=== PATIENT | male | born 1945 | race Caucasian/White ===

== ENCOUNTER → 2020-06-16 11:42 | Outpatient (BNVA) | payer MEDICARE, OTHER, SELFPAY | PROVIDERS: PCP Internal Medicine; Visit Provider Nurse Practitioner Gerontology | DX: Z13.89 Encounter for screening for other disorder (principal) | CPT/HCPCS: Q3014 ==

== ENCOUNTER → 2020-12-23 12:40 | Outpatient (BNVA) | payer MEDICARE, OTHER, SELFPAY | PROVIDERS: PCP Internal Medicine; Visit Provider Nurse Practitioner Gerontology | CPT/HCPCS: Q3014 ==

== ENCOUNTER → 2021-04-08 13:34 | Outpatient (BNVA) | payer MEDICARE, OTHER, SELFPAY | PROVIDERS: PCP Internal Medicine; Visit Provider Nurse Practitioner Gerontology | DX: E11.65 Type 2 diabetes mellitus with hyperglycemia (principal); E11.21 Type 2 diabetes mellitus with diabetic nephropathy; E11.42 Type 2 diabetes mellitus with diabetic polyneuropathy; I10 Essential (primary) hypertension; I25.10 Atherosclerotic heart disease of native coronary artery without angina pectoris; E78.5 Hyperlipidemia, unspecified; J44.9 Chronic obstructive pulmonary disease, unspecified; G47.33 Obstructive sleep apnea (adult) (pediatric); Z87.891 Personal history of nicotine dependence; Z79.4 Long term (current) use of insulin; Z79.84 Long term (current) use of oral hypoglycemic drugs; Z79.899 Other long term (current) drug therapy; Z71.3 Dietary counseling and surveillance | CPT/HCPCS: 82947; 83036; 99212 ==

== ENCOUNTER 2022-06-30 12:14 | Emergency (ER) | payer MEDICARE, OTHER, SELFPAY ==
--- NOTE | ~2022-06-30 | XR_ITS ---
EXAMINATION: XR SHOULDER, LEFT CLINICAL INFORMATION: Fall yesterday. COMPARISON: None TECHNIQUE: Three views of the left shoulder. FINDINGS: No acute fracture or malalignment. There is mild osteoarthritis of the glenohumeral and acromioclavicular joints with small marginal osteophytes and nonuniform joint space narrowing. A small 2 mm calcification at the greater tuberosity is most consistent with calcific tendinitis. Subtle calcific densities overlying the lesser tuberosity and proximal shaft may also correspond to foci calcific tendinitis or bone islands in the proximal humerus. No aggressive osseous lesions are identified. Surgical clips are present in the left supraclavicular soft tissues. No acute rib fractures are identified on these images. XR/XR shoulder LT min 2V IMPRESSION: 1. No acute fracture or malalignment. 2. Mild glenohumeral and acromioclavicular osteoarthritis. 3. Small 2 mm calcification at the greater tuberosity, most consistent with calcific tendinitis.
--- NOTE | ~2022-06-30 | CT_ITS ---
EXAMINATION: CT HEAD WITHOUT CONTRAST CLINICAL INFORMATION: Status post fall COMPARISON: None TECHNIQUE: Contiguous axial imaging was performed from the skull base to vertex without intravenous administration of contrast. This CT examination was performed using dose optimization techniques as appropriate, variously including the following: *Automated exposure control *Adjustment of mA and/or kV according to patient size (this includes techniques or standardized protocols for targeted exams where dose is matched to indication/reason for exam; i.e. extremities or head) *Use of iterative reconstruction technique DLP: 1452 mGy-cm FINDINGS: There is no evidence of acute intracranial hemorrhage or territorial infarction. Chronic white matter small vessel ischemic changes. Mild cerebral atrophy with commensurate changes in ventricular volume. No abnormal mass effect or midline shift is seen. Amin to white matter differentiation is well preserved. No extra-axial fluid collections are identified. There is no abnormal attenuation within the brain parenchyma. The osseous structures and soft tissues are normal. The mastoid air cells and visualized portions of the paranasal sinuses are well aerated. Vertebrobasilar atherosclerotic calcifications. CT/CT cervical spine wo IV con IMPRESSION: 1. No acute intracranial pathology. 2. Chronic white matter small vessel ischemic changes. EXAMINATION: Noncontrast CT scan of the cervical spine. INDICATION: Status post fall COMPARISON: None. TECHNIQUE: Helical, multidetector axial images were obtained from the occiput to the upper thorax. Coronal and sagittal reformats of the cervical spine were provided for interpretation. DLP: 1452 mGy-cm FINDINGS: No acute fractures or dislocations of the cervical spine are seen. Multilevel anterior bridging osteophytes suggesting diffuse idiopathic skeletal hyperostosis (DISH). Multilevel degenerative changes. Anatomic alignment and positioning of the vertebral bodies and posterior elements is noted. The atlantoaxial joint and craniovertebral articulations are normal without evidence of subluxation. There is no prevertebral soft tissue swelling. Hypodense focus in the right thyroid lobe with calcification. The visualized portions of the lung apices and mediastinum are unremarkable. IMPRESSION: 1. No acute visible fracture or dislocation. 2. Multilevel anterior bridging osteophytes suggesting diffuse idiopathic skeletal hyperostosis (DISH). 3. Multilevel degenerative changes.
[2022-06-30 12:22] VITALS: BP 141/86; PULSE 105; RESP 16; TEMP 36.2; O2SAT 98; BMI 29.0
[2022-06-30 12:24] LABS: Glucose, Whole Blood 473 mg/dL (60-115)
--- NOTE | 2022-06-30 12:47 | ED_ITS ---
HPI - General Adult General Chief complaint: General Medical Stated complaint: HIGH BS >600,FALL LAST NOC,BACK/NECK/SHOULDER PAIN Time Seen by Provider: 06/30/22 12:45 Source: patient and EMS Mode of arrival: ambulatory Limitations: no limitations History of Present Illness HPI narrative: 76 year old male on apixaban presents to the ED after falling last night. He admits to forgetting to take his medications includiing multiple insulins and diabetes medications. He states he stumbled and fell backwards and is unsure if he hit his head or not. He denies LOC. His main complaint is left shoulder pain and elevated glucose. He can't tell me why other than he forget to take his diabetes medications and the read was high. Unsure why they sent him in a day after a fall. He has full ROM. I will workup for DKA and get a XR of the shoulder. Related Data Home Medications Medication Instructions Recorded Confirmed apixaban 5 mg tablet 5 mg PO BID 06/16/20 04/28/22 atorvastatin 40 mg tablet 40 mg PO 06/16/20 04/28/22 furosemide 20 mg tablet 20 mg PO 06/16/20 04/28/22 metoprolol succinate 50 mg 50 mg PO 12/23/20 04/28/22 tablet,extended release 24 hr Previous Rx's Medication Instructions Recorded dulaglutide 3 mg/0.5 mL 3 mg (0.5 mL) subcut QWEEK #6 mL 04/08/21 subcutaneous pen injector (Trulicity) insulin degludec 200 unit/mL (3 76 unit (0.38 mL) subcut DAILY 30 08/10/21 mL) subcutaneous pen days #18 mL pen needle, diabetic 31 gauge x #400 ea 09/21/21/16 insulin aspart U-100 100 unit/mL 18 - 24 unit (0.18 - 0.24 mL) 10/14/21 (3 mL) subcutaneous pen (Novolog subcut TID 30 days #30 mL FlexPen U-100 Insulin aspart) blood sugar diagnostic (FreeStyle 1 strip miscellaneous QID for 11/15/21 Lite Strips) diabetes mellitus #400 strips metformin 500 mg tablet 1,000 mg PO BID #360 tabs 04/23/22 irbesartan 150 mg tablet 150 mg PO DAILY #90 caps 05/30/22 Allergies Allergy/AdvReac Type Severity Reaction Status Date / Time No Known Allergies Allergy Verified 04/28/22 16:43 [No Known Allergies*] Review of Systems Review of Systems: Review of systems: General: Patient denies any fever chills recent illness or falls Musculoskeletal: Denies back pain or body aches or other injuries HEENT: denies headache, runny nose, ear pain Respiratory: denies shortness of breath, cough Cardiovascular: no chest pain or palpitations : denies dysuria, frequency Abdomen: no nausea vomiting denies abdominal pain Extremities: Left shoulder pain no swelling, Skin: no diaphoresis Yes all other systems are reviewed and are negative [facility] Past Medical History Medical History CAD (coronary artery disease) COPD (chronic obstructive pulmonary disease) Essential hypertension Heart failure with preserved ejection fraction History of MT (myocardial infarction) Hx of atrial flutter Hx of myocardial infarction Hyperlipidemia LDL goal <70 Melanoma Moderate COPD (chronic obstructive pulmonary disease) Morbid obesity WAYNE (obstructive sleep apnea) Severe obstructive sleep apnea Type 2 diabetes mellitus with diabetic polyneuropathy Type 2 diabetes mellitus with hyperglycemia, with long-term current use of insulin Surgical History History of cardiac radiofrequency ablation History of ear surgery History of radical neck dissection Hx of vasectomy Family History Family History Unknown Adopted Social History Social History Household Members: Family Patient Tobacco Use Status: Former Tobacco user e-Cigarette/Vaping Use: Never Used Advance Directives: Yes Advance Directives Information Provided: Yes Advance Directives on File: No Current occupational status: retired Cognitive needs: No Hearing needs: No Vision needs: No Physical Exam ED Vital Signs: Vital Signs - 24 hr 06/30/22 12:22 06/30/22 14:21 06/30/22 16:42 Temperature 97.1 F 97.8 F Pulse Rate 105 H 105 H 108 H Respiratory Rate 16 16 Blood Pressure 141/86 H 143/81 H 152/99 H Pulse Oximetry 98 99 100 Oxygen Delivery Method Room Air Room Air BMI result Body Mass Index 29.0 Neurological exam: CN II- XII tested. Patient is alert and oriented to person place and time. Patient has no dysphagia or dysarthia, denies good vision in all four vision galvan no nystagmus on exam, good strength to upper and lower extremities with normal reflexes to brachioradialis, wrist, patella and achilles. Negative romberg, good finger to nose and heel to queen. General: Well-appearing well-nourished in no signs of distress HEENT: Normocephalic atraumatic Neck: No signs of JVD, no masses no tenderness or lymphadenopathy Cardiovascular: Regular rate and rhythm Respiratory: Clear to auscultation bilaterally Abdomen: Soft nontender no masses Extremities: Normal pedal pulses no signs of edema Skin: Dry warm no rashes Back: No tenderness full ROM Medications Administered Discontinued Medications Generic Name Dose Route Start Last Admin Trade Name Freq PRN Reason Stop Dose Admin Sodium Chloride 1,000 mls @ 999 mls/hr 06/30/22 13:00 06/30/22 14:44 Ns IV 06/30/22 14:00 Infused .Q1H1M KANDACE Infusion Sodium Chloride 1,000 mls @ 999 mls/hr 06/30/22 16:00 06/30/22 17:08 Ns IV 06/30/22 17:00 999 mls/hr .Q1H1M KANDACE Administration Insulin Human Lispro 10 unit 06/30/22 15:52 06/30/22 16:00 Insulin Lispro 100 Unit/Ml 3 Ml Vial SUBCUT 06/30/22 15:53 10 unit ONCE ONE Administration Medical Decision Making Medical Decision Making MDM Narrative: Concern for fall on a blood thinner. I will give fluids nd workup for DKA CT head neck and XR the shoulder. I will give him some insulin at this time. Patient found to be hyperglycemic with elevated potassium. I will repeat potassium and get another blood glucose 1714 Repeat potassium is normal glucose improved I feel comfortable sending home. CT head and neck and XR is negative. Differential Diagnosis Differential Diagnoses: The differential diagnosis associated with the presentation includes syncope, head injury, ICH, LOC, left shoulder strain vs fracture, DKA, hyperglycemia, medication noncompliance. Lab Data Result Diagrams: 06/30/22 13:25 06/30/22 16:33 Labs: Lab Results 06/30/22 06/30/22 06/30/22 Range/Units 12:21 13:25 13:25 WBC 3.7 L (4.8-10.8) X10*3/uL RBC 4.35 L (4.60-5.80) X10*6/uL Hgb 12.9 L (14.0-18.0) g/dl Hct 38.4 L (42.0-52.0) % MCV 88.3 (80.0-98.0) fL MCH 29.7 (27.0-33.0) pg MCHC 33.6 (31.0-36.0) g/dl RDW 14.6 (11.0-16.0) % Plt Count 158 L (160-400) X10*3/uL MPV 10.4 (9.4-12.4) fL Immature Gran % (Auto) 0.3 (0.0-0.4) % Neut % (Auto) 64.0 (45-73) % Lymph % (Auto) 23.6 (20-40) % Hernando % (Auto) 8.9 (2-11) % Eos % (Auto) 2.7 (0-4) % Baso % (Auto) 0.5 (0-2) % Lymph # (Auto) 0.9 L (1.2-4.9) X10*3/uL Hernando # (Auto) 0.3 (0.1-1.2) X10*3/uL Eos # (Auto) 0.1 (0.0-0.4) X10*3/uL Baso # (Auto) 0.0 (0.0-0.2) X10*3/uL Abs Immat Gran (auto) 0.01 (0.00-0.03) X10*3/uL Absolute Neuts (auto) 2.4 (2.0-8.3) x10*3/uL Absolute Nucleated RBC 0.000 (0.0-0.012) X10*3/uL Nucleated RBC % (auto) 0.0 (0.0-0.2) /100WBC Sodium 136 (135-145) mmol/L Potassium 5.2 H (3.3-5.1) mmol/L Chloride 97 (96-108) mmol/L Carbon Dioxide 29 (22-29) mmol/L Anion Gap 15 (12-20) BUN 17 H (9-16) mg/dL Creatinine 1.30 (0.5-1.4) mg/dL Estim Creat Clear Calc 59.1 Estimated GFR 54 POC Glucose 473 H* (60-115) mg/dL Random Glucose 518 H* (60-115) mg/dL Insulin Level 10 (2-29) uU/mL Calcium 8.8 (8.4-10.2) mg/dL Magnesium 2.0 (1.6-2.6) mg/dL Total Bilirubin 0.7 (0.0-1.0) mg/dL Direct Bilirubin 0.4 (0.0-0.5) mg/dL AST 33 (5-37) U/L ALT 32 (0-40) U/L Alkaline Phosphatase 193 H (39-117) U/L Total Protein 6.1 L (6.5-8.0) g/dL Albumin 3.0 L (3.5-5.0) g/dL Lipase 21 (8-78) U/L Urine Color Urine Appearance Urine pH (5.0-9.0) Ur Specific Gary (1.005-1.025) Urine Protein (Neg-Trace) mg/dL Urine Glucose (UA) (Negative) mg/dL Urine Ketones (Negative) mg/dL Urine Blood (Negative) Urine Nitrite (Negative) Ur Leukocyte Esterase (Negative) Urine RBC (0-2) /HPF Urine WBC (0-5) /HPF Ur Squamous Epith Cells (0-2) /HPF Urine Bacteria (None Seen) Hyaline Casts (0-2) /LPF Acetone, Qual (Negative) 06/30/22 06/30/22 06/30/22 Range/Units 13:25 14:10 16:33 WBC (4.8-10.8) X10*3/uL RBC (4.60-5.80) X10*6/uL Hgb (14.0-18.0) g/dl Hct (42.0-52.0) % MCV (80.0-98.0) fL MCH (27.0-33.0) pg MCHC (31.0-36.0) g/dl RDW (11.0-16.0) % Plt Count (160-400) X10*3/uL MPV (9.4-12.4) fL Immature Gran % (Auto) (0.0-0.4) % Neut % (Auto) (45-73) % Lymph % (Auto) (20-40) % Hernando % (Auto) (2-11) % Eos % (Auto) (0-4) % Baso % (Auto) (0-2) % Lymph # (Auto) (1.2-4.9) X10*3/uL Hernando # (Auto) (0.1-1.2) X10*3/uL Eos # (Auto) (0.0-0.4) X10*3/uL Baso # (Auto) (0.0-0.2) X10*3/uL Abs Immat Gran (auto) (0.00-0.03) X10*3/uL Absolute Neuts (auto) (2.0-8.3) x10*3/uL Absolute Nucleated RBC (0.0-0.012) X10*3/uL Nucleated RBC % (auto) (0.0-0.2) /100WBC Sodium 136 (135-145) mmol/L Potassium 4.7 (3.3-5.1) mmol/L Chloride 100 (96-108) mmol/L Carbon Dioxide 25 (22-29) mmol/L Anion Gap 16 (12-20) BUN 15 (9-16) mg/dL Creatinine 1.33 (0.5-1.4) mg/dL Estim Creat Clear Calc 57.8 Estimated GFR 52 POC Glucose (60-115) mg/dL Random Glucose 437 H* (60-115) mg/dL Insulin Level (2-29) uU/mL Calcium 8.5 (8.4-10.2) mg/dL Magnesium (1.6-2.6) mg/dL Total Bilirubin (0.0-1.0) mg/dL Direct Bilirubin (0.0-0.5) mg/dL AST (5-37) U/L ALT (0-40) U/L Alkaline Phosphatase (39-117) U/L Total Protein (6.5-8.0) g/dL Albumin (3.5-5.0) g/dL Lipase (8-78) U/L Urine Color Yellow Urine Appearance Clear Urine pH 5.5 (5.0-9.0) Ur Specific Gary >= 1.030 H (1.005-1.025) Urine Protein 300 (3+) H (Neg-Trace) mg/dL Urine Glucose (UA) >=1000 H (Negative) mg/dL Urine Ketones 15 (Negative) mg/dL Urine Blood Trace H (Negative) Urine Nitrite Negative (Negative) Ur Leukocyte Esterase Negative (Negative) Urine RBC 0-2 (0-2) /HPF Urine WBC 0-5 (0-5) /HPF Ur Squamous Epith Cells 0-2 (0-2) /HPF Urine Bacteria None Seen (None Seen) Hyaline Casts 0-2 (0-2) /LPF Acetone, Qual Negative (Negative) 06/30/22 Range/Units 16:40 WBC (4.8-10.8) X10*3/uL RBC (4.60-5.80) X10*6/uL Hgb (14.0-18.0) g/dl Hct (42.0-52.0) % MCV (80.0-98.0) fL MCH (27.0-33.0) pg MCHC (31.0-36.0) g/dl RDW (11.0-16.0) % Plt Count (160-400) X10*3/uL MPV (9.4-12.4) fL Immature Gran % (Auto) (0.0-0.4) % Neut % (Auto) (45-73) % Lymph % (Auto) (20-40) % Hernando % (Auto) (2-11) % Eos % (Auto) (0-4) % Baso % (Auto) (0-2) % Lymph # (Auto) (1.2-4.9) X10*3/uL Hernando # (Auto) (0.1-1.2) X10*3/uL Eos # (Auto) (0.0-0.4) X10*3/uL Baso # (Auto) (0.0-0.2) X10*3/uL Abs Immat Gran (auto) (0.00-0.03) X10*3/uL Absolute Neuts (auto) (2.0-8.3) x10*3/uL Absolute Nucleated RBC (0.0-0.012) X10*3/uL Nucleated RBC % (auto) (0.0-0.2) /100WBC Sodium (135-145) mmol/L Potassium (3.3-5.1) mmol/L Chloride (96-108) mmol/L Carbon Dioxide (22-29) mmol/L Anion Gap (12-20) BUN (9-16) mg/dL Creatinine (0.5-1.4) mg/dL Estim Creat Clear Calc Estimated GFR POC Glucose 379 H* (60-115) mg/dL Random Glucose (60-115) mg/dL Insulin Level (2-29) uU/mL Calcium (8.4-10.2) mg/dL Magnesium (1.6-2.6) mg/dL Total Bilirubin (0.0-1.0) mg/dL Direct Bilirubin (0.0-0.5) mg/dL AST (5-37) U/L ALT (0-40) U/L Alkaline Phosphatase (39-117) U/L Total Protein (6.5-8.0) g/dL Albumin (3.5-5.0) g/dL Lipase (8-78) U/L Urine Color Urine Appearance Urine pH (5.0-9.0) Ur Specific Gary (1.005-1.025) Urine Protein (Neg-Trace) mg/dL Urine Glucose (UA) (Negative) mg/dL Urine Ketones (Negative) mg/dL Urine Blood (Negative) Urine Nitrite (Negative) Ur Leukocyte Esterase (Negative) Urine RBC (0-2) /HPF Urine WBC (0-5) /HPF Ur Squamous Epith Cells (0-2) /HPF Urine Bacteria (None Seen) Hyaline Casts (0-2) /LPF Acetone, Qual (Negative) Discharge Plan Discharge Clinical Impression: Type 2 diabetes mellitus with diabetic polyneuropathy, Fall, Acute pain of left shoulder, Acute hyperglycemia Patient Disposition: Home, Self-Care Instructions: Diabetic Hyperglycemia (ED), Arm Pain (ED), Fall Prevention (ED) Additional Instructions: Please call to follow up with your doctor. If you have any other concerns please return to the ED. Prescriptions: No Action insulin degludec 200 unit/mL (3 mL) insulin pen 76 unit subcut DAILY 30 Days Qty: 18 4RF (DME) pen needle, diabetic 31 gauge x 3/16 needle See Rx Instructions .ROUTE .MEDSUPPLY Qty: 400 3RF Rx Instructions: As directed 4x/day insulin aspart U-100 [Novolog FlexPen U-100 Insulin] 100 unit/mL (3 mL) insulin pen 18 - 24 unit subcut TID 30 Days Qty: 30 6RF FreeStyle Lite Strips Strip 1 strip miscellaneous QID Qty: 400 3RF metformin 500 mg tablet 1,000 mg PO BID Qty: 360 1RF irbesartan 150 mg tablet 150 mg PO DAILY Qty: 90 0RF Trulicity 3 mg/0.5 mL pen injector 3 mg subcut QWEEK Qty: 6 1RF atorvastatin 40 mg tablet 40 mg PO furosemide 20 mg tablet 20 mg PO Eliquis 5 mg tablet 5 mg PO BID metoprolol succinate 50 mg tablet extended release 24 hr 50 mg PO
[2022-06-30] MEDS: 0.9 % Sodium Chloride 1,000 ML 999 ML IV ×2 (13:26→17:08)
[2022-06-30 13:32] LABS: MANUAL DIFF FLAG NO
[2022-06-30 13:34] LABS: Basophils Percent Auto 0.5 % (0-2); Eosinophils Absolute Auto 0.1 X10*3/uL (0.0-0.4); Eosinophils Percent Auto 2.7 % (0-4); Hematocrit 38.4 % (42.0-52.0); Hemoglobin 12.9 g/dl (14.0-18.0); Imm Gran Abs Auto 0.01 X10*3/uL (0.00-0.03); Imm Gran Pct Auto 0.3 % (0.0-0.4); Lymphocytes Absolute Auto 0.9 X10*3/uL (1.2-4.9); Lymphocytes Percent Auto 23.6 % (20-40); Mean Corpuscular HGB Conc 33.6 g/dl (31.0-36.0); Mean Corpuscular Hemoglobin 29.7 pg (27.0-33.0); Mean Corpuscular Volume 88.3 fL (80.0-98.0); Mean Platelet Volume 10.4 fL (9.4-12.4); Monocytes Absolute Auto 0.3 X10*3/uL (0.1-1.2); Monocytes Percent Auto 8.9 % (2-11); Neutrophils Absolute Auto 2.4 x10*3/uL (2.0-8.3); Platelet Count 158 X10*3/uL (160-400); Red Blood Count 4.35 X10*6/uL (4.60-5.80); Red Cell Distribution Width 14.6 % (11.0-16.0); White Blood Count 3.7 X10*3/uL (4.8-10.8)
[2022-06-30 13:46] LABS: Acetone, serum QL Negative (Negative)
[2022-06-30 14:03] LABS: Alanine Aminotransferase 32 U/L (0-40); Alkaline Phosphatase 193 U/L (39-117); Anion Gap 15 (12-20); Aspartate Amino Transferase 33 U/L (5-37); Bilirubin Direct 0.4 mg/dL (0.0-0.5); Bilirubin Total 0.7 mg/dL (0.0-1.0); Blood Urea Nitrogen 17 mg/dL (9-16); Calcium 8.8 mg/dL (8.4-10.2); Carbon Dioxide 29 mmol/L (22-29); Chloride 97 mmol/L (96-108); Creatinine Clr Calc Pharmacy 59.1; Estimated Glomerular Filt Rate 54; Lipase 21 U/L (8-78); Potassium 5.2 mmol/L (3.3-5.1); Sodium 136 mmol/L (135-145); Total Protein 6.1 g/dL (6.5-8.0)
[2022-06-30 14:18] LABS: Appearance Urine Clear; Color Urine Yellow; Glucose Urine UA >=1000 mg/dL (Negative); Leukocyte Esterase Urine Negative (Negative); Nitrite Urine Negative (Negative); PH 5.5 (5.0-9.0); Specific Gravity - Urine >= 1.030 (1.005-1.025); UMIC TRIGGER UACC YES; Urine Blood Trace (Negative); Urine Ketones 15 mg/dL (Negative); Urine Protein 300 (3+) mg/dL (Neg-Trace)
[2022-06-30 14:20] LABS: Bacteria Urine None Seen (None Seen); Hyaline Casts Urine 0-2 /LPF (0-2); RBC Urine 0-2 /HPF (0-2); Squamous Epithelial Cell Urine 0-2 /HPF (0-2); WBC Urine 0-5 /HPF (0-5)
[2022-06-30 14:21] VITALS: BP 143/81; PULSE 105; RESP 16; O2SAT 99
[2022-06-30 14:40] LABS: Glucose Random 518 mg/dL (60-115)
[2022-06-30 14:47] LABS: Insulin 10 uU/mL (2-29)
[2022-06-30] MEDS: Insulin Lispro 100 UNIT/ML 3 ML VIAL 10 UNIT SUBCUT (16:00)
[2022-06-30 16:42] VITALS: BP 152/99; PULSE 108; TEMP 36.6; O2SAT 100
[2022-06-30 16:45] LABS: Glucose, Whole Blood 379 mg/dL (60-115)
[2022-06-30 17:10] LABS: Anion Gap 16 (12-20); Blood Urea Nitrogen 15 mg/dL (9-16); Calcium 8.5 mg/dL (8.4-10.2); Carbon Dioxide 25 mmol/L (22-29); Chloride 100 mmol/L (96-108); Creatinine Clr Calc Pharmacy 57.8; Estimated Glomerular Filt Rate 52; Glucose Random 437 mg/dL (60-115); Potassium 4.7 mmol/L (3.3-5.1); Sodium 136 mmol/L (135-145)
[2022-06-30 17:19] LABS: Insulin 29 uU/mL (2-29)
--- NOTE | 2022-06-30 19:38 | PC.NURSE ---
this rn assumed care of pt at 1900. called pt son jared at this time to inform him that pt is ready for discharge. per jared son will be there shortly to pick pt up
== END 2022-06-30 20:32 | disposition home or self-care (01) ==
PROVIDERS: Emergency Provider Student in an Organized Health Care Education/Training Program
DX: E11.42 Type 2 diabetes mellitus with diabetic polyneuropathy (principal); M25.512 Pain in left shoulder; R51.9 Headache, unspecified; E11.65 Type 2 diabetes mellitus with hyperglycemia; M54.2 Cervicalgia; Z79.4 Long term (current) use of insulin; Z79.899 Other long term (current) drug therapy
CPT/HCPCS: 36415; 70450; 72125; 73030; 80048; 80076; 81001; 82009; 82947; 83525; 83690; 83735; 85025; 96361; 96374; 99284; 99285

== ENCOUNTER 2022-07-20 08:26 | Outpatient (REF) | payer MEDICARE, OTHER, SELFPAY ==
[2022-07-20 12:34] LABS: Alanine Aminotransferase 21 U/L (0-40); Anion Gap 19 (12-20); Aspartate Amino Transferase 24 U/L (5-37); Blood Urea Nitrogen 18 mg/dL (9-16); Carbon Dioxide 26 mmol/L (22-29); Chloride 96 mmol/L (96-108); Cholesterol 160 mg/dL; Estimated Glomerular Filt Rate 39; Glucose Fasting 488 mg/dL (60-99); HDL Cholesterol 43 mg/dL; LDL Cholesterol Calculated 91 mg/dl; Potassium 4.8 mmol/L (3.3-5.1); Sodium 136 mmol/L (135-145); Triglycerides 133 mg/dL; Vitamin D 25-OH Total 17.5 ng/mL (>30)
== END 2022-07-20 08:27 | disposition home or self-care (01) ==
LOC: HO.HMGCLDS 08:26
PROVIDERS: PCP Internal Medicine; Visit Provider Internal Medicine
DX: I11.0 Hypertensive heart disease with heart failure (principal); I50.30 Unspecified diastolic (congestive) heart failure; E11.42 Type 2 diabetes mellitus with diabetic polyneuropathy; E11.65 Type 2 diabetes mellitus with hyperglycemia; E66.01 Morbid (severe) obesity due to excess calories; E78.5 Hyperlipidemia, unspecified; G47.33 Obstructive sleep apnea (adult) (pediatric); I25.2 Old myocardial infarction; J44.9 Chronic obstructive pulmonary disease, unspecified; Z79.4 Long term (current) use of insulin; Z86.79 Personal history of other diseases of the circulatory system; Z98.890 Other specified postprocedural states
CPT/HCPCS: 36415; 80048; 80061; 82306; 84450; 84460

== ENCOUNTER 2022-07-21 | Outpatient (REF) | payer MEDICARE, OTHER, SELFPAY ==
[2022-07-22 16:08] LABS: Microalbum/Creatinine Ratio Ur 1423.5 ug/mg cr
== END 2022-07-21 00:01 | disposition home or self-care (01) ==
LOC: HO.LNP
PROVIDERS: Visit Provider Internal Medicine
DX: E11.42 Type 2 diabetes mellitus with diabetic polyneuropathy (principal); E11.65 Type 2 diabetes mellitus with hyperglycemia; I10 Essential (primary) hypertension; E78.5 Hyperlipidemia, unspecified; I50.30 Unspecified diastolic (congestive) heart failure; G47.33 Obstructive sleep apnea (adult) (pediatric); E66.01 Morbid (severe) obesity due to excess calories; J44.9 Chronic obstructive pulmonary disease, unspecified; I25.2 Old myocardial infarction; Z79.4 Long term (current) use of insulin; Z98.890 Other specified postprocedural states; Z86.79 Personal history of other diseases of the circulatory system
CPT/HCPCS: 82043

== ENCOUNTER 2022-07-22 12:17 | Outpatient (REF) | payer MEDICARE, OTHER, SELFPAY ==
[2022-07-22 16:56] LABS: B Type Natriuretic Peptide 2330 pg/mL (<100)
== END 2022-07-22 12:18 | disposition home or self-care (01) ==
LOC: HO.HMGCLDS 12:17
PROVIDERS: Visit Provider Internal Medicine
DX: I50.30 Unspecified diastolic (congestive) heart failure (principal); Z86.79 Personal history of other diseases of the circulatory system
CPT/HCPCS: 36415; 83880

== ENCOUNTER 2022-07-23 13:52 | Emergency (ER) | payer MEDICARE, OTHER, SELFPAY ==
[2022-07-23] VITALS (28 sets, daily range): BP systolic 60–181; BP diastolic 36–92; PULSE 40–97; RESP 12–17; TEMP 34; O2SAT 61–100; BMI 33.7
--- NOTE | ~2022-07-23 | CT_ITS ---
EXAMINATION: CT HEAD WITHOUT CONTRAST (STROKE PROTOCOL) CLINICAL INFORMATION: Stroke protocol. Thank you please negative Negative COMPARISON: CT brain 06/30/2022 TECHNIQUE: Contiguous axial imaging was performed from the skull base to vertex without intravenous administration of contrast. This CT examination was performed using dose optimization techniques as appropriate, variously including the following: *Automated exposure control *Adjustment of mA and/or kV according to patient size (this includes techniques or standardized protocols for targeted exams where dose is matched to indication/reason for exam; i.e. extremities or head) *Use of iterative reconstruction technique DLP: 975 mGy-cm FINDINGS: There is no acute intra-axial, extra-axial bleed, masses or midline shift. There is no acute infarction evolution. There is no edema. The lateral ventricles are symmetrical in size and configuration with mild enlargement. The [place] to white matter difference is maintained. Bone windows reveal no calvarial abnormality. There is no scalp soft tissue abnormality. CT/CT head for stroke IMPRESSION: No acute intracranial process seen. This critical result was discussed with Dr. Mendoza in ER at 3:00 PM hours on 07/23/2022. It was ascertained that the content and urgency of the report was understood at the time of direct communication.
--- NOTE | ~2022-07-23 | CT_ITS ---
EXAM: CT scan of the chest, abdomen, and pelvis. INDICATION: Question pneumonia. Question abdominal aortic aneurysm. COMPARISON: Chest x-ray earlier today TECHNIQUE: Multidetector helical imaging of the chest, abdomen, and pelvis was obtained from the thoracic inlet through the pubic symphysis. Coronal and sagittal reformatted images that were obtained were also reviewed. DLP: 2062 mGy-cm FINDINGS: CHEST: Endotracheal tube terminates 3.5 cm above the level the declan. Some peripheral mucous plugging is noted particularly within the lower lobes. Large right and moderate to large left-sided pleural effusions, both with overlying airspace disease. There is some patchy airspace disease present within both upper lobes. The heart is mildly enlarged. Coronary artery calcifications are present. There is no pericardial effusion. Normal caliber thoracic aorta. Calcified mildly prominent right hilar lymph nodes are noted. Heterogeneous right thyroid lobe with suspected superimposed nodules. ABDOMEN/PELVIS: The liver is normal in size but demonstrates diffusely decreased attenuation. There is also a mildly nodular contour of the liver. A few gallstones are noted within otherwise unremarkable appearing gallbladder. There is fatty atrophy of the pancreas. Small calcified granulomas of the spleen. The adrenal glands are unremarkable. Symmetrically sized kidneys. No renal calculi or hydronephrosis bilaterally. Normal caliber loops of small and large bowel. Normal caliber abdominal aorta demonstrating severe atherosclerotic disease. No retroperitoneal lymphadenopathy. Small fat-containing paraumbilical hernia. No retroperitoneal lymphadenopathy. The bladder is normal in appearance. The prostate gland is normal in size. There is a trace amount of free fluid within the abdomen and pelvis. Fat-containing inguinal hernias are noted. No inguinal lymphadenopathy present. Diffuse subcutaneous anasarca. OSSEOUS STRUCTURES Diffuse osteopenia. Moderate degenerative changes of the spine. CT/CT abdomen pelvis wo IV con IMPRESSION: 1. Large right and moderate to large left-sided pleural effusions, both with overlying airspace disease. There is also some patchy airspace disease present within both upper lobes. Findings are concerning for an infectious etiology. 2. Diffusely decreased liver attenuation with a mildly nodular contour. Findings suggest underlying liver disease. Correlation with liver enzymes recommended. 3. Cholelithiasis. 4. Evidence of prior granulomatous disease. 5. Heterogeneous right thyroid lobe with suspected superimposed nodules. 6. Trace amount of free fluid within the abdomen and pelvis. 7. Diffuse subcutaneous anasarca.
--- NOTE | ~2022-07-23 | XR_ITS ---
EXAMINATION: XR CHEST CLINICAL INFORMATION: Chest pain COMPARISON: None TECHNIQUE: Frontal view of the chest was obtained. FINDINGS: Endotracheal tube tip terminates 3.6 cm above the declan. Small bilateral pleural effusions with blunted costophrenic angles. Company bibasilar opacities likely representing accompanying passive atelectasis. No pneumothorax. Increased indistinct pulmonary vascular markings suggesting mild pulmonary edema. Cardiomediastinal silhouette within normal limits. No acute osseous injury. Surgical clips project over the left neck. XR/XR chest 1V IMPRESSION: 1. Endotracheal tube tip terminates 3.6 cm above the declan. 2. Small bilateral pleural effusions and bibasilar atelectasis. 3. Increased pulmonary vascular markings suggesting mild pulmonary edema.
--- NOTE | 2022-07-23 13:59 | ECG_ITS ---
Test Reason : SOB Blood Pressure : / mmHG Vent. Rate : 086 BPM Atrial Rate : 086 BPM P-R Int : 200 ms QRS Dur : 164 ms QT Int : 436 ms P-R-T Axes : 037 -83 130 degrees QTc Int : 521 ms Artifact in tracing Undetermined rhythm - possibly sinus Right bundle branch block Left anterior fascicular block Bifascicular block Possible Lateral infarct , age undetermined Abnormal ECG When compared with ECG of 17-NOV-2016 11:31, No significant changes seen Referred By: Gigi Mendoza Electronically Signed By:ANMOL VASQUEZ
[2022-07-23 14:09] LABS: MANUAL DIFF FLAG NO
[2022-07-23 14:12] LABS: Venous Blood Gas Refer to POC result
[2022-07-23 14:12] LABS: Basophils Absolute Auto 0.1 X10*3/uL (0.0-0.2); Basophils Percent Auto 0.8 % (0-2); Eosinophils Absolute Auto 0.2 X10*3/uL (0.0-0.4); Eosinophils Percent Auto 3.5 % (0-4); Hematocrit 39.6 % (42.0-52.0); Hemoglobin 12.7 g/dl (14.0-18.0); Imm Gran Abs Auto 0.02 X10*3/uL (0.00-0.03); Imm Gran Pct Auto 0.3 % (0.0-0.4); Lymphocytes Absolute Auto 2.6 X10*3/uL (1.2-4.9); Lymphocytes Percent Auto 41.7 % (20-40); Mean Corpuscular HGB Conc 32.1 g/dl (31.0-36.0); Mean Corpuscular Hemoglobin 29.6 pg (27.0-33.0); Mean Corpuscular Volume 92.3 fL (80.0-98.0); Mean Platelet Volume 10.7 fL (9.4-12.4); Monocytes Absolute Auto 0.7 X10*3/uL (0.1-1.2); Monocytes Percent Auto 11.3 % (2-11); Neutrophils Absolute Auto 2.7 x10*3/uL (2.0-8.3); Neutrophils Percent Auto 42.4 % (45-73); Platelet Count 205 X10*3/uL (160-400); Red Blood Count 4.29 X10*6/uL (4.60-5.80); Red Cell Distribution Width 15.4 % (11.0-16.0); White Blood Count 6.3 X10*3/uL (4.8-10.8)
[2022-07-23 14:13] LABS: VBG Base Excess 1.9 mmol/L; VBG HCO3 32 mmol/L (22-26); VBG pCO2 78 mmHg; VBG pH 7.21 (7.32-7.43); VBG pO2 44 mmHg
[2022-07-23] MEDS: Norepinephrine Bitartrate/D5W 8 MG/250 ML PLAST..BAG 10.59 MG IV (14:20)
[2022-07-23 14:26] LABS: ABG Refer to POC result
[2022-07-23 14:27] LABS: ABG Base Excess -3.5 mmol/L; ABG HCO3 23 mmol/L (22-26); ABG pCO2 52 mmHg (32-45); ABG pH 7.26 (7.35-7.45); ABG pO2 125 mmHg (83-108)
[2022-07-23 14:27] LABS: Prothrombin Time Whole Bld POC 17.1 sec (11.1-13.5); ~PT, ~INR - Anti Coag Clinic 1.4 (0.9-1.1)
[2022-07-23 14:29] LABS: INTERNATIONAL NORM RATIO 1.6 (0.9-1.1); Prothrombin Time 19.3 SEC (10.0-13.1)
[2022-07-23 14:34] LABS: Alanine Aminotransferase 36 U/L (0-40); Albumin Level 2.8 g/dL (3.5-5.0); Alkaline Phosphatase 254 U/L (39-117); Anion Gap 17 (12-20); Aspartate Amino Transferase 85 U/L (5-37); Bilirubin Total 0.7 mg/dL (0.0-1.0); Blood Urea Nitrogen 25 mg/dL (9-16); Calcium 8.4 mg/dL (8.4-10.2); Carbon Dioxide 24 mmol/L (22-29); Chloride 101 mmol/L (96-108); Estimated Glomerular Filt Rate 44; Glucose Random 46 mg/dL (60-115); Potassium 5.2 mmol/L (3.3-5.1); Sodium 137 mmol/L (135-145); Total Protein 5.8 g/dL (6.5-8.0)
--- NOTE | 2022-07-23 14:45 | ED_ITS ---
HPI - Altered Mental Status General Chief Complaint: Altered Mental Status Stated Complaint: BRADYCARDIA,HYPOTENSION,AMS Source: EMS Mode of arrival: EMS Limitations: altered mental status History of Present Illness HPI narrative: This is 76 years old the wound presented with altered mental status hypotensive by the physician intensivist. At arrival was combative, blood sugar was low and despite the 50 remain combative and altered he was intubated at arrival by me with RSI. He was unable to give any history to me the patient according to the son did not feel well he was short of breath prior to 911 call MD complaint: altered mental status, confusion and weakness Onset (ago): hour(s) (1) Severity: severe Consistency of symptoms: getting Worse Treatments prior to arrival: other (dextrose at arrival) Related Data Home Medications Medication Instructions Recorded Confirmed apixaban 5 mg tablet 5 mg PO BID 06/16/20 04/28/22 atorvastatin 40 mg tablet 40 mg PO 06/16/20 04/28/22 furosemide 20 mg tablet 20 mg PO 06/16/20 04/28/22 metoprolol succinate 50 mg 50 mg PO 12/23/20 04/28/22 tablet,extended release 24 hr Previous Rx's Medication Instructions Recorded dulaglutide 3 mg/0.5 mL 3 mg (0.5 mL) subcut QWEEK #6 mL 04/08/21 subcutaneous pen injector (Trulicity) insulin degludec 200 unit/mL (3 76 unit (0.38 mL) subcut DAILY 30 08/10/21 mL) subcutaneous pen days #18 mL pen needle, diabetic 31 gauge x #400 ea 09/21/21/ insulin aspart U-100 100 unit/mL 18 - 24 unit (0.18 - 0.24 mL) 10/14/21 (3 mL) subcutaneous pen (Novolog subcut TID 30 days #30 mL FlexPen U-100 Insulin aspart) blood sugar diagnostic (FreeStyle 1 strip miscellaneous QID for 11/15/21 Lite Strips) diabetes mellitus #400 strips metformin 500 mg tablet 1,000 mg PO BID #360 tabs 04/23/22 irbesartan 150 mg tablet 150 mg PO DAILY #90 caps 05/30/22 Allergies Allergy/AdvReac Type Severity Reaction Status Date / Time No Known Allergies Allergy Verified 07/22/22 12:23 [No Known Allergies*] Review of Systems Review of Systems: Yes Unobtainable due to mental condition [facility] Past Medical History Medical History CAD (coronary artery disease) COPD (chronic obstructive pulmonary disease) Essential hypertension Heart failure with preserved ejection fraction History of WV (myocardial infarction) Hx of atrial flutter Hx of myocardial infarction Hyperlipidemia LDL goal <70 Melanoma Moderate COPD (chronic obstructive pulmonary disease) Morbid obesity WAYNE (obstructive sleep apnea) Severe obstructive sleep apnea Type 2 diabetes mellitus with diabetic polyneuropathy Type 2 diabetes mellitus with hyperglycemia, with long-term current use of insulin Surgical History History of cardiac radiofrequency ablation History of ear surgery History of radical neck dissection Hx of vasectomy Family History Family History Unknown Adopted Social History Social History Household Members: Family Housing: House Patient Tobacco Use Status: Former Tobacco user e-Cigarette/Vaping Use: Never Used Advance Directives: No Current occupational status: retired Cognitive needs: No Hearing needs: No Vision needs: Yes Physical Exam ED Vital Signs: Vital Signs - 24 hr 07/23/22 15:03 07/23/22 15:28 07/23/22 14:00 Pulse Rate 50 Respiratory Rate 16 Blood Pressure 144/91 H 60/40 L Pulse Oximetry Oxygen Delivery Method Oxygen Flow Rate Fraction of Inspired Oxygen 30 07/23/22 15:58 07/23/22 16:04 07/23/22 16:15 Pulse Rate 57 52 56 Respiratory Rate 16 16 16 Blood Pressure 159/82 H 65/36 L 158/73 H Pulse Oximetry 96 97 97 Oxygen Delivery Method Mechanical Ventilation Oxygen Flow Rate Fraction of Inspired Oxygen 07/23/22 14:24 07/23/22 14:26 07/23/22 14:28 Pulse Rate 97 88 90 Respiratory Rate 17 12 Blood Pressure 151/70 H 156/79 H 141/86 H Pulse Oximetry 100 100 Oxygen Delivery Method Non-Rebreather Mask Oxygen Flow Rate 12 Fraction of Inspired Oxygen 07/23/22 14:29 07/23/22 14:34 07/23/22 14:37 Pulse Rate 89 79 75 Respiratory Rate 12 16 16 Blood Pressure 141/81 H 144/85 H 139/80 Pulse Oximetry 100 100 100 Oxygen Delivery Method Ambu-Bag Mechanical Ventilation Mechanical Ventilation Oxygen Flow Rate Fraction of Inspired Oxygen 07/23/22 14:40 07/23/22 16:55 Pulse Rate 70 52 Respiratory Rate 16 16 Blood Pressure 128/76 98/46 L Pulse Oximetry 100 99 Oxygen Delivery Method Mechanical Ventilation Mechanical Ventilation Oxygen Flow Rate Fraction of Inspired Oxygen BMI result Body Mass Index 33.7 Const General: acute distress, in distress (severe) severe, anxious and combative Nutritional Appearance: well nourished [facility] Head: Yes normal to inspection General nose exam: Normal external nose present Face and sinus: Yes normal facial exam Mouth: Normal oral and palatal mucosa present Throat: Yes posterior oropharynx normal Neck Neck: Yes normal visual inspection Resp Other: ronchi Auscultation: rhonchi Cardio Jugular venous distension: no JVD Rate: regular rate GI Inspection: Yes normal to inspection Palpation (GI): Soft to palpation Course Reevaluation(s) Reevaluation #1: Intubated with RSI,spoke with the son to ct now Time: 14:49 Reevaluation #2: [facility] no ICU bed,called [facility] no bed in the ICU Time: 15:12 Reevaluation #3: spoke with Kemal) they will call me back Additional Reevaluation(s): called back [facility] accepted now by enterprise mobility architect service Dr Bo,we are waiting for ambulance 4.59 PM ambulance here to take the pt to [facility] Medications Administered Generic Name Dose Route Start Last Admin Trade Name Freq PRN Reason Stop Dose Admin Fentanyl 1,000 mcg in 100 mls @ 0 mls/hr 07/23/22 15:00 07/23/22 16:15 Sublimaze/Ns IVCONT 100 mcg/hr .Q0M KANDACE 10 mls/hr Titration Protocol Per Protocol Norepinephrine Bitartrate 8 mg in 250 mls @ 0 mls/hr 07/23/22 15:30 07/23/22 15:35 Levophed IV 0.23 mcg/kg/min .Q0M KANDACE 48.73 mls/hr Titration Protocol Per Protocol Discontinued Medications Generic Name Dose Route Start Last Admin Trade Name Freq PRN Reason Stop Dose Admin Sodium Chloride 1,000 mls @ 999 mls/hr 07/23/22 14:00 07/23/22 15:32 Ns IVCONT 07/23/22 15:00 999 mls/hr .Q1H1M KANDACE Administration Medical Decision Making Medical Decision Making [facility] Narrative: presented hypotensive and combactive intubated at arrival clinical picture c/w cardiogenic shock (elevated tropi/chf on CXR,bed side Echo low EF) Differential Diagnosis Differential Diagnoses: The differential diagnosis associated with the presentation includes WV/sepsis/pNX/AAA Consult Healthcare Provider spoke with enterprise mobility architect at [facility] Lab Data [facility] Lab Attestation statement: I reviewed the patient's lab results. 07/23/22 14:04 07/23/22 14:04 Labs: Lab Results 07/23/22 07/23/22 07/23/22 Range/Units 14:03 14:04 14:04 WBC 6.3 (4.8-10.8) X10*3/uL RBC 4.29 L (4.60-5.80) X10*6/uL Hgb 12.7 L (14.0-18.0) g/dl Hct 39.6 L (42.0-52.0) % MCV 92.3 (80.0-98.0) fL MCH 29.6 (27.0-33.0) pg MCHC 32.1 (31.0-36.0) g/dl RDW 15.4 (11.0-16.0) % Plt Count 205 D (160-400) X10*3/uL MPV 10.7 (9.4-12.4) fL Immature Gran % (Auto) 0.3 (0.0-0.4) % Neut % (Auto) 42.4 L (45-73) % Lymph % (Auto) 41.7 H (20-40) % Summers % (Auto) 11.3 H (2-11) % Eos % (Auto) 3.5 (0-4) % Baso % (Auto) 0.8 (0-2) % Lymph # (Auto) 2.6 (1.2-4.9) X10*3/uL Summers # (Auto) 0.7 (0.1-1.2) X10*3/uL Eos # (Auto) 0.2 (0.0-0.4) X10*3/uL Baso # (Auto) 0.1 (0.0-0.2) X10*3/uL Abs Immat Gran (auto) 0.02 (0.00-0.03) X10*3/uL Absolute Neuts (auto) 2.7 (2.0-8.3) x10*3/uL Absolute Nucleated RBC 0.000 (0.0-0.012) X10*3/uL Nucleated RBC % (auto) 0.0 (0.0-0.2) /100WBC PT 19.3 H (10.0-13.1) SEC Whole Blood PT (11.1-13.5) sec INR 1.6 H (0.9-1.1) Whole Blood INR (0.9-1.1) O2 Saturation % ABG pH at Pt Temp (7.35-7.45) ABG pCO2 at Pt Temp (32-45) mmHg ABG pO2 at Pt Temp (83-108) mmHg ABG HCO3 (22-26) mmol/L ABG Base Excess (Actual) mmol/L VBG pH (7.32-7.43) VBG pCO2 mmHg VBG pO2 mmHg VBG HCO3 (22-26) mmol/L VBG O2 Saturation % VBG Base Excess mmol/L Sodium (135-145) mmol/L Potassium (3.3-5.1) mmol/L Chloride (96-108) mmol/L Carbon Dioxide (22-29) mmol/L Anion Gap (12-20) BUN (9-16) mg/dL Creatinine (0.5-1.4) mg/dL Estim Creat Clear Calc Estimated GFR POC Glucose 46 L* (60-115) mg/dL Random Glucose (60-115) mg/dL Lactic Acid (0.5-2.0) mmol/L Calcium (8.4-10.2) mg/dL Total Bilirubin (0.0-1.0) mg/dL AST (5-37) U/L ALT (0-40) U/L Alkaline Phosphatase (39-117) U/L Troponin I High Sens (<3.5-35.0) ng/L Total Protein (6.5-8.0) g/dL Albumin (3.5-5.0) g/dL Influenza Type A (PCR) (Negative) Influenza Type B (PCR) (Negative) RSV RNA Qual (PCR) (Negative) SARS-CoV-2 RNA (RT-PCR) (Negative) 07/23/22 07/23/22 07/23/22 Range/Units 14:04 14:05 14:06 WBC (4.8-10.8) X10*3/uL RBC (4.60-5.80) X10*6/uL Hgb (14.0-18.0) g/dl Hct (42.0-52.0) % MCV (80.0-98.0) fL MCH (27.0-33.0) pg MCHC (31.0-36.0) g/dl RDW (11.0-16.0) % Plt Count (160-400) X10*3/uL MPV (9.4-12.4) fL Immature Gran % (Auto) (0.0-0.4) % Neut % (Auto) (45-73) % Lymph % (Auto) (20-40) % Summers % (Auto) (2-11) % Eos % (Auto) (0-4) % Baso % (Auto) (0-2) % Lymph # (Auto) (1.2-4.9) X10*3/uL Summers # (Auto) (0.1-1.2) X10*3/uL Eos # (Auto) (0.0-0.4) X10*3/uL Baso # (Auto) (0.0-0.2) X10*3/uL Abs Immat Gran (auto) (0.00-0.03) X10*3/uL Absolute Neuts (auto) (2.0-8.3) x10*3/uL Absolute Nucleated RBC (0.0-0.012) X10*3/uL Nucleated RBC % (auto) (0.0-0.2) /100WBC PT (10.0-13.1) SEC Whole Blood PT (11.1-13.5) sec INR (0.9-1.1) Whole Blood INR (0.9-1.1) O2 Saturation % ABG pH at Pt Temp (7.35-7.45) ABG pCO2 at Pt Temp (32-45) mmHg ABG pO2 at Pt Temp (83-108) mmHg ABG HCO3 (22-26) mmol/L ABG Base Excess (Actual) mmol/L VBG pH 7.21 L (7.32-7.43) VBG pCO2 78 mmHg VBG pO2 44 mmHg VBG HCO3 32 H (22-26) mmol/L VBG O2 Saturation 41.0 % VBG Base Excess 1.9 mmol/L Sodium 137 (135-145) mmol/L Potassium 5.2 H (3.3-5.1) mmol/L Chloride 101 (96-108) mmol/L Carbon Dioxide 24 (22-29) mmol/L Anion Gap 17 (12-20) BUN 25 H (9-16) mg/dL Creatinine 1.53 H (0.5-1.4) mg/dL Estim Creat Clear Calc TNP Estimated GFR 44 POC Glucose (60-115) mg/dL Random Glucose 46 L* (60-115) mg/dL Lactic Acid 5.5 H* (0.5-2.0) mmol/L Calcium 8.4 D (8.4-10.2) mg/dL Total Bilirubin 0.7 (0.0-1.0) mg/dL AST 85 H (5-37) U/L ALT 36 (0-40) U/L Alkaline Phosphatase 254 H (39-117) U/L Troponin I High Sens (<3.5-35.0) ng/L Total Protein 5.8 L (6.5-8.0) g/dL Albumin 2.8 L (3.5-5.0) g/dL Influenza Type A (PCR) (Negative) Influenza Type B (PCR) (Negative) RSV RNA Qual (PCR) (Negative) SARS-CoV-2 RNA (RT-PCR) (Negative) 07/23/22 07/23/22 07/23/22 Range/Units 14:10 14:21 14:23 WBC (4.8-10.8) X10*3/uL RBC (4.60-5.80) X10*6/uL Hgb (14.0-18.0) g/dl Hct (42.0-52.0) % MCV (80.0-98.0) fL MCH (27.0-33.0) pg MCHC (31.0-36.0) g/dl RDW (11.0-16.0) % Plt Count (160-400) X10*3/uL MPV (9.4-12.4) fL Immature Gran % (Auto) (0.0-0.4) % Neut % (Auto) (45-73) % Lymph % (Auto) (20-40) % Summers % (Auto) (2-11) % Eos % (Auto) (0-4) % Baso % (Auto) (0-2) % Lymph # (Auto) (1.2-4.9) X10*3/uL Summers # (Auto) (0.1-1.2) X10*3/uL Eos # (Auto) (0.0-0.4) X10*3/uL Baso # (Auto) (0.0-0.2) X10*3/uL Abs Immat Gran (auto) (0.00-0.03) X10*3/uL Absolute Neuts (auto) (2.0-8.3) x10*3/uL Absolute Nucleated RBC (0.0-0.012) X10*3/uL Nucleated RBC % (auto) (0.0-0.2) /100WBC PT (10.0-13.1) SEC Whole Blood PT 17.1 H (11.1-13.5) sec INR (0.9-1.1) Whole Blood INR 1.4 H (0.9-1.1) O2 Saturation 98.0 % ABG pH at Pt Temp 7.26 L (7.35-7.45) ABG pCO2 at Pt Temp 52 H (32-45) mmHg ABG pO2 at Pt Temp 125 H (83-108) mmHg ABG HCO3 23 (22-26) mmol/L ABG Base Excess (Actual) -3.5 mmol/L VBG pH (7.32-7.43) VBG pCO2 mmHg VBG pO2 mmHg VBG HCO3 (22-26) mmol/L VBG O2 Saturation % VBG Base Excess mmol/L Sodium (135-145) mmol/L Potassium (3.3-5.1) mmol/L Chloride (96-108) mmol/L Carbon Dioxide (22-29) mmol/L Anion Gap (12-20) BUN (9-16) mg/dL Creatinine (0.5-1.4) mg/dL Estim Creat Clear Calc Estimated GFR POC Glucose 133 H (60-115) mg/dL Random Glucose (60-115) mg/dL Lactic Acid (0.5-2.0) mmol/L Calcium (8.4-10.2) mg/dL Total Bilirubin (0.0-1.0) mg/dL AST (5-37) U/L ALT (0-40) U/L Alkaline Phosphatase (39-117) U/L Troponin I High Sens (<3.5-35.0) ng/L Total Protein (6.5-8.0) g/dL Albumin (3.5-5.0) g/dL Influenza Type A (PCR) (Negative) Influenza Type B (PCR) (Negative) RSV RNA Qual (PCR) (Negative) SARS-CoV-2 RNA (RT-PCR) (Negative) 07/23/22 07/23/22 Range/Units 14:37 15:00 WBC (4.8-10.8) X10*3/uL RBC (4.60-5.80) X10*6/uL Hgb (14.0-18.0) g/dl Hct (42.0-52.0) % MCV (80.0-98.0) fL MCH (27.0-33.0) pg MCHC (31.0-36.0) g/dl RDW (11.0-16.0) % Plt Count (160-400) X10*3/uL MPV (9.4-12.4) fL Immature Gran % (Auto) (0.0-0.4) % Neut % (Auto) (45-73) % Lymph % (Auto) (20-40) % Summers % (Auto) (2-11) % Eos % (Auto) (0-4) % Baso % (Auto) (0-2) % Lymph # (Auto) (1.2-4.9) X10*3/uL Summers # (Auto) (0.1-1.2) X10*3/uL Eos # (Auto) (0.0-0.4) X10*3/uL Baso # (Auto) (0.0-0.2) X10*3/uL Abs Immat Gran (auto) (0.00-0.03) X10*3/uL Absolute Neuts (auto) (2.0-8.3) x10*3/uL Absolute Nucleated RBC (0.0-0.012) X10*3/uL Nucleated RBC % (auto) (0.0-0.2) /100WBC PT (10.0-13.1) SEC Whole Blood PT (11.1-13.5) sec INR (0.9-1.1) Whole Blood INR (0.9-1.1) O2 Saturation % ABG pH at Pt Temp (7.35-7.45) ABG pCO2 at Pt Temp (32-45) mmHg ABG pO2 at Pt Temp (83-108) mmHg ABG HCO3 (22-26) mmol/L ABG Base Excess (Actual) mmol/L VBG pH (7.32-7.43) VBG pCO2 mmHg VBG pO2 mmHg VBG HCO3 (22-26) mmol/L VBG O2 Saturation % VBG Base Excess mmol/L Sodium (135-145) mmol/L Potassium (3.3-5.1) mmol/L Chloride (96-108) mmol/L Carbon Dioxide (22-29) mmol/L Anion Gap (12-20) BUN (9-16) mg/dL Creatinine (0.5-1.4) mg/dL Estim Creat Clear Calc Estimated GFR POC Glucose (60-115) mg/dL Random Glucose (60-115) mg/dL Lactic Acid (0.5-2.0) mmol/L Calcium (8.4-10.2) mg/dL Total Bilirubin (0.0-1.0) mg/dL AST (5-37) U/L ALT (0-40) U/L Alkaline Phosphatase (39-117) U/L Troponin I High Sens 134.1 H* (<3.5-35.0) ng/L Total Protein (6.5-8.0) g/dL Albumin (3.5-5.0) g/dL Influenza Type A (PCR) NEGATIVE (Negative) Influenza Type B (PCR) NEGATIVE (Negative) RSV RNA Qual (PCR) NEGATIVE (Negative) SARS-CoV-2 RNA (RT-PCR) POSITIVE A (Negative) Independent Interpretation I performed an independent interpretation of an: Plain X-Ray Interpretation: pleural effusion CHF Radiology Impression Discussion of test interpretation with radiology: I have reviewed the radiologist's reading. Independent Historian Clinical information obtained from an independent historian. History obtained fr om or confirmed by: Other (son) External Record Review External record reviewed: Inpatient record Procedures Intubation Time out performed: Yes sedative: Ketamine Mg Given: 50 paralytic: Succinylcholine Mg Given: 100 Laryngoscope: other (glidescope) ET Tube Size: 7.5 ET Tube Uncuffed: Yes Tube Placement Confirmation: visualized tube passing through cords, equal breath sounds bilaterally, no breath sounds over epigastrium and confirmation by capnometry Patient Tolerated Procedure: well Intubation Complications: none Critical Care Time Critical Care Time Critical Care Time: Yes Total Critical Care Time: 120 Attestation: taking care of the pt/hypotension/speaking with enterprise mobility architect/other ICU/speking with EMS/arranging transfer Discharge Plan Discharge Clinical Impression: Cardiogenic shock, Respiratory failure, CHF (congestive heart failure) Patient Disposition: [facility] Transfer Details: transfer [facility] no ICU Bed at [facility] Prescriptions: No Action insulin degludec 200 unit/mL (3 mL) insulin pen 76 unit subcut DAILY 30 Days Qty: 18 4RF (DME) pen needle, diabetic 31 gauge x 3/16 needle See Rx Instructions .ROUTE .MEDSUPPLY Qty: 400 3RF Rx Instructions: As directed 4x/day insulin aspart U-100 [Novolog FlexPen U-100 Insulin] 100 unit/mL (3 mL) insulin pen 18 - 24 unit subcut TID 30 Days Qty: 30 6RF FreeStyle Lite Strips Strip 1 strip miscellaneous QID Qty: 400 3RF metformin 500 mg tablet 1,000 mg PO BID Qty: 360 1RF irbesartan 150 mg tablet 150 mg PO DAILY Qty: 90 0RF Trulicity 3 mg/0.5 mL pen injector 3 mg subcut QWEEK Qty: 6 1RF atorvastatin 40 mg tablet 40 mg PO furosemide 20 mg tablet 20 mg PO Eliquis 5 mg tablet 5 mg PO BID metoprolol succinate 50 mg tablet extended release 24 hr 50 mg PO
--- NOTE | 2022-07-23 15:06 | MHC.EDTECH ---
@[phone] CALL PLACED TO [facility] PT TX LINE @ DR HINOJOSA REQUEST MIKE ANSWER, ASKS IF THIS PT IS A STROKE, STEMI, PEDI, TRAUMA OR OB. CLOSED TO ALL OTHER TRANSFERS DUE TO CAPACITY DR HINOJOSA SAYS NONE OF THE ABOVE.
--- NOTE | 2022-07-23 15:15 | MHC.EDTECH ---
@[phone] [facility] TX LINE CALLED FOR POSSIBLE TX TO [facility] ANDRE ANSWERS,TAKES PT INFO THEN ASKS TO SPEAK WITH DR ASHISH HINOJOSA TAKES OVER CALL RIGHT AWAY
[2022-07-23 15:19] LABS: Influenza A PCR NEGATIVE (Negative); Influenza B PCR NEGATIVE (Negative); Resp Syncy Virus RNA Qual PCR NEGATIVE (Negative); SARS COV2 PCR INHOUSE POSITIVE (Negative)
[2022-07-23] MEDS: fentaNYL citrate/NS 1,000 MCG/100 ML PLAST..BAG 2.5 MCG IVCONT (15:19)
[2022-07-23 15:29] LABS: Troponin-I High Sensitivity 134.1 ng/L (<3.5-35.0)
--- NOTE | 2022-07-23 15:31 | MHC.EDTECH ---
@0630 CALL RECEIVED FROM ANDRE OF THE [facility] LINE WITH AN PREPARING BOX TENDER FROM [facility] ON THE LINE TO SPEAK WITH DR ASHISH HINOJOSA TAKES OVER CALL RIGHT AWARE
[2022-07-23] MEDS: 0.9 % Sodium Chloride 1,000 ML 999 ML IVCONT (15:32)
--- NOTE | 2022-07-23 15:44 | MHC.EDTECH ---
@[phone] DR HINOJOSA CALLS [facility] PT TX LINE HIMSELF @[phone] CALL RECEIVED FROM JOSE ANTONIO OF THE [facility] PT TX LINE ASKING TO SPEAK WITH DR ASHISH HINOJOSA TAKES OVER CALL RIGHT AWAY
[2022-07-23 15:59] LABS: Lactic Acid 5.5 mmol/L (0.5-2.0)
--- NOTE | 2022-07-23 16:00 | MHC.EDTECH ---
@1600 CALL RECEIVED FROM BRISA OF [facility] PT TX LINE WITH ROOM ASSIGNMENT AND ACCEPTING MD ANGELINA MUTUAL 3 ROOM 19 RN TO RN [phone] LEIGH
--- NOTE | 2022-07-23 16:18 | PC.NURSE ---
attempted to call [facility] to give report, nurse to call us back
--- NOTE | 2022-07-23 16:19 | W.PM.CCCN ---
History of Present Illness Data of Consult Service Date: 07/23/22 Requesting physician: Gigi Mendoza Primary Care Provider: Karlene Jordan MD [facility] Reason for consult: Agitated delirium/hypotension 76-year-old type 2 diabetic male with a history of CHF with preserved ejection fraction also underlying hypertension and sleep apnea and history of atrial flutter called because patient was not feeling well ambulance arrives and initially was conversational is in in the ambulance became very delirious very agitated and in the emergency room the same clearly an agitated delirium but progressive livedo was noted with extensive bilateral stasis dermatitis and skin was weeping and excoriated with red areas but I do not believe cellulitis although luck I can not completely rule that out but I felt carotid upstrokes initially they were very poor so I knew that his stroke volume was poor and while people were holding him I initially did a bedside echo demonstrating severe diffuse hypokinesis but only the base of the heart was alec the entire apex was akinetic and at best ejection fraction 20% which is dramatically different from April of 2022 I.e. obtained arterial blood gas from the femoral artery and he indeed had a mixed metabolic and respiratory acidosis pH 7.26 with pCO2 non compensated at 52 and negative base excess of 3.5 which I expected of course to progress and get worse but his lactate did come back at 5 and again and this appears to be cardiogenic shock I do not believe the elevated lactate is related to sepsis Twelve lead EKG with wide QRS complex background rhythm difficult to discern but probably atrial flutter versus atrial fibrillation but the he clearly had no R-wave progression from V1 to V6 with precordial ST segment depression at it looked like it could represent potential ST-elevation LA in the posterior distribution but I be willing to bed that this is a balanced circulatory collapse that this multi vessel disease probably all collateral E dependent and I think more than 1 vascular territories being threatened accounting for this severe myopathy First troponin positive at 134 even though this is all within the hour of onset of his issue he had a BNP of over 2500 and chest x-ray showing a congestive heart failure pattern with acute bilateral interstitial edema as well as bilateral pleural effusions but he was on apixaban so his head scan showed no evidence of bleed I recommended aspirin per rectum and immediate transfer to a tertiary center for intra-aortic balloon pump support and cardiac slab conditioner supervisor due to the probable multi vessel infarct that he sustaining Review of Systems Review of Systems: Yes Unobtainable due to mental status [facility] Past Medical History Medical History CAD (coronary artery disease) COPD (chronic obstructive pulmonary disease) Essential hypertension Heart failure with preserved ejection fraction History of LA (myocardial infarction) Hx of atrial flutter Hx of myocardial infarction Hyperlipidemia LDL goal <70 Melanoma Moderate COPD (chronic obstructive pulmonary disease) Morbid obesity WAYNE (obstructive sleep apnea) Severe obstructive sleep apnea Type 2 diabetes mellitus with diabetic polyneuropathy Type 2 diabetes mellitus with hyperglycemia, with long-term current use of insulin Family History Family History Unknown Adopted Surgical History Surgical History History of cardiac radiofrequency ablation History of ear surgery History of radical neck dissection Hx of vasectomy Social History Social History Household Members: Family Housing: House Patient Tobacco Use Status: Former Tobacco user e-Cigarette/Vaping Use: Never Used Advance Directives: No Current occupational status: retired Cognitive needs: No Hearing needs: No Vision needs: Yes Meds Allergies Allergy/AdvReac Type Severity Reaction Status Date / Time No Known Allergies Allergy Verified 07/22/22 12:23 [No Known Allergies*] Active Medications: Current Medications Fentanyl (Sublimaze/Ns) 1,000 mcg in 100 mls @ 0 mls/hr IVCONT .Q0M KANDACE; Protocol Last Titration: 07/23/22 15:58 Dose: 75 mcg/hr, 7.5 mls/hr Norepinephrine Bitartrate (Levophed) 8 mg in 250 mls @ 0 mls/hr IV .Q0M KANDACE; Protocol Last Titration: 07/23/22 15:35 Dose: 0.23 mcg/kg/min, 48.73 mls/hr Naloxone HCl (Naloxone Hcl 0.4 Mg/Ml Vial) 0.2 mg IVPUSH Q2M PRN PRN Reason: Excessive sedation or RR < 8 Home Medications Medication Instructions Recorded Confirmed Last Taken Type apixaban 5 mg tablet 5 mg PO BID 06/16/20 04/28/22 Unknown History atorvastatin 40 mg tablet 40 mg PO 06/16/20 04/28/22 Unknown History furosemide 20 mg tablet 20 mg PO 06/16/20 04/28/22 Unknown History metoprolol succinate 50 mg 50 mg PO 12/23/20 04/28/22 Unknown History tablet,extended release 24 hr Physical Exam Vital Signs: Vital Signs: Last Vital Signs Pulse 52 07/23/22 16:04 Resp 16 07/23/22 16:04 BP 65/36 L 07/23/22 16:04 Pulse Ox 97 07/23/22 16:04 O2 Del Method 07/23/22 16:04 FiO2 30 07/23/22 15:03 BMI result Body Mass Index 33.7 Agitated delirium with severe bilateral stasis to dermatitis and progressing livedo and poor bilateral carotid upstrokes indicating very poor stroke work bedside echo confirming severe diffuse hypokinesis but apical akinesis clearly a low output state cardiogenic shock Able to move all 4 extremities but then he was sedated for intubation which helped to stabilize in and started Levophed for blood pressure preservation which did counteract his hypotension No palpable organomegaly Coarse bilateral rales and wheezes Moderately heavily calcified aortic valve with some reduced opening I do not believe that it is critical Results Labs 07/23/22 14:04 07/23/22 14:04 Labs: Short CBC 07/23/22 Range/Units 14:04 WBC 6.3 (4.8-10.8) X10*3/uL Hgb 12.7 L (14.0-18.0) g/dl Hct 39.6 L (42.0-52.0) % Plt Count 205 D (160-400) X10*3/uL BMP 07/23/22 14:04 Sodium 137 Potassium 5.2 H Chloride 101 Carbon Dioxide 24 BUN 25 H Creatinine 1.53 H Calcium 8.4 D Liver Function 07/23/22 Range/Units 14:04 Total Bilirubin 0.7 (0.0-1.0) mg/dL AST 85 H (5-37) U/L ALT 36 (0-40) U/L Alkaline Phosphatase 254 H (39-117) U/L Albumin 2.8 L (3.5-5.0) g/dL Assessment and Plan (1) Cardiogenic shock: Status: Acute (2) Respiratory failure: Status: Acute (3) Acute LA, anterior wall, initial episode of care: Status: Acute (4) Moderate COPD (chronic obstructive pulmonary disease): Status: Acute (5) CAD (coronary artery disease): Status: Acute (6) CHF (congestive heart failure): Status: Acute (7) History of cardiac radiofrequency ablation: Status: Acute (8) Severe obstructive sleep apnea: Status: Acute (9) Morbid obesity: Status: Acute (10) Hx of atrial flutter: Status: Acute (11) Heart failure with preserved ejection fraction: Status: Acute (12) Type 2 diabetes mellitus with diabetic polyneuropathy: Status: Acute (13) Type 2 diabetes mellitus with hyperglycemia, with long-term current use of insulin: Status: Acute (14) Essential hypertension: Status: Acute (15) Hyperlipidemia LDL goal <70: Status: Acute (16) Acute renal failure superimposed on stage 3 chronic kidney disease: Status: Acute Plan 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
--- NOTE | 2022-07-23 16:33 | PC.NURSE ---
attempted to call family- no answer
[2022-07-23 16:47] LABS: Glucose, Whole Blood 46 mg/dL (60-115)
[2022-07-23 16:47] LABS: Glucose, Whole Blood 133 mg/dL (60-115)
[2022-07-23 16:47] LABS: Reflex Lactate? Lactic Acid Added
[2022-07-23] MEDS: Dextrose 50 % 25 GM/50 ML SYRINGE IVPUSH (17:07)
--- NOTE | 2022-07-23 17:40 | PC.NURSE ---
report given to [facility], pt discharging with flavia.
--- NOTE | 2022-07-23 17:50 | PC.NURSE ---
pt came in via ems, upon arrival pt was not verbal to questions being asked, pt had staring gaze with nonreactive pupils, pt became combative, director of cardiac cath lab applied, bp cuff applied- unable to obtain BP and had to obtain manual BP, O2 sat with finger probe was swapped out for forehead monitor as finger probe wasnt detecting. provider at bedside evaluating patient. 1404- poc 46 1404- labs obtained 1405- 1st set blood cultures obtained 1406- 25 g D50 IVP given 1420- norepi started 0.05mcg/kg/min 1421- blood gas obtained 1425- ketamine 50 mg ivp given, succinylcholine 100 mg ivp given to sedate patient for intubation 1427- pt intubated ETT 8, 23 at lip 1428- 3 mg midazolam given 1429- ekg obtained, Dr. Morgan at bedside performing bedside cardiac echo 1437- nasal swab obtained 1442- pt to CT scan 1455- pt moving in CT scan 50 mg ketamine given 1500- pt return to room 4, temp sensing 16F harmon cath inserted, Temperature was 97.8 which remained the same throughout the time pt was in [facility] 1519- fentanyl started at 25 mcg/hr 1519 per verbal request of Dr. Mendoza who was at bedside- norepi increased to 0.5mcg/kg/min pt sinus evelin on monitor bp 65/36 1525- 1 mg midazolam given as patient was moving 1529- nor epi decreased to 0.25 mcg/kg/min, fenatanyl increased to 50mcg/hr 1532- IVF hung per order 1535- nor epi decreased to 0.23 mcg/kg/min- bp 178/92, pt sinus evelin on monitor 1552- nor epi decreased to 0.18 mcg/kg/min- bp 166/90, sinus evelin 62 1554- second blood culture obtained 1558- pt bucking vent, fentanyl increased to 75 mcg/hr, vss 1615- pt continues to shields vent, fentanyl increased to 100 mcg/hr, vss, sinus evelin on monitor 1647- nor epi decreased to 0.16, pt sinus evelin on monitor, pt vitals stable 1704- recheck of patients poc- 74 1707- 25gm D50 IVP given to patient prior to his transfer to [facility] per request of Dr. Mendoza 1707- nor epi decreased to 0.14 mcg/kg/min- pt continues to be sinus evelin, vitals stable Jackson at bedside changing patient over to their vent, moved patient over to ambulance stretcher and awaiting second business support specialist to arrive to transport patient to [facility] 1740- patient discharged to [facility], report given to floor nurse Dr. Mendoza intially asked this nurse to pull out ativan to give to the patient, Dr. Mendoza changed his mind and opted for midazolam, the ativan inadvertently was put into the RSI bag and sent to the pharmacy after intubation. This nurse spoke with Elvis in the pharmacy who requested that we waste the ativan in our pyxis and he will do a return to stock with it in pharmacy to prevent a discrepancy in the ED if we did a return as the vial was in the pharmacy.. Charge nurse Car was aware of this and it was wasted with his assistance in the ED pyxis.
--- NOTE | 2022-07-23 17:51 | PC.NURSE ---
pt was noted to have bilateral arm skin tears and bruising to rt ac area, pt had 3+ edema to bilateral legs
[2022-07-23 22:25] LABS: Glucose, Whole Blood 74 mg/dL (60-115)
== END 2022-07-23 17:40 | disposition short-term general hospital (02) ==
PROVIDERS: Emergency Provider Emergency Medicine; PCP Internal Medicine
DX: R57.0 Cardiogenic shock (principal); J96.90 Respiratory failure, unspecified, unspecified whether with hypoxia or hypercapnia; I21.09 ST elevation (STEMI) myocardial infarction involving other coronary artery of anterior wall; R41.0 Disorientation, unspecified; Z20.822 Contact with and (suspected) exposure to COVID-19; Z20.828 Contact with and (suspected) exposure to other viral communicable diseases; E11.22 Type 2 diabetes mellitus with diabetic chronic kidney disease; I13.0 Hypertensive heart and chronic kidney disease with heart failure and stage 1 through stage 4 chronic kidney disease, or unspecified chronic kidney disease; I50.9 Heart failure, unspecified; N18.30 Chronic kidney disease, stage 3 unspecified; N17.9 Acute kidney failure, unspecified; E78.5 Hyperlipidemia, unspecified; J44.9 Chronic obstructive pulmonary disease, unspecified; F41.9 Anxiety disorder, unspecified; G47.33 Obstructive sleep apnea (adult) (pediatric); E66.9 Obesity, unspecified; Z68.33 Body mass index [BMI] 33.0-33.9, adult; Z79.01 Long term (current) use of anticoagulants; Z79.02 Long term (current) use of antithrombotics/antiplatelets; Z79.899 Other long term (current) drug therapy; Z79.4 Long term (current) use of insulin; Z87.891 Personal history of nicotine dependence
CPT/HCPCS: 0241U; 31500; 36415; 70450; 71045; 71250; 74176; 80053; 82803; 82947; 83605; 84484; 85025; 85610; 87040; 93005; 94002; 96374; 96375; 99285; J3010